=== PATIENT | female | born 1945 | race Caucasian/White ===

== ENCOUNTER 2025-04-28 09:29 | Emergency (ER) | payer OTHER, SELFPAY ==
--- OUTSIDE RECORDS SUMMARY | 2025-04-27 23:59 | XMS_ITS | Continuity of Care Document ---
Author Organization [facility] Address [address] [facility], [address] d Floor, [address] [place] [id number] Care Team Providers Care Tobacco Warehouse Agent Name Role Forensic EngineerManan Wood MD Primary Care Physician [phone] Encounter [facility] Date(s): 03/28/25 - 04/27/25 [facility] [address], [address] [place] [id number] Attending Physician: Deepa Grady Admitting Physician: AdmtrDeepa Referring Physician: Admtr ArKandi Encounter Type: Triage Allergies, Adverse Reactions, Alerts Substance Criticality Severity Reaction Reaction Severity Status morphine Unknown Active Immunizations Given and Recorded Vaccine Date Status Refusal Reason zoster vaccine, inactivated 12/04/23 Recorded zoster vaccine, inactivated 08/15/18 Recorded zoster vaccine, inactivated 06/16/18 Recorded influenza virus vaccine, inactivated 08/14/22 Give n influenza virus vaccine, inactivated 06/29/18 Angel rded influenza virus vaccine, inactivated 06/12/17 Give n influenza virus vaccine, inactivated 07/24/15 Give n influenza virus vaccine, inactivated 06/09/14 Give n influenza virus vaccine, inactivated 05/28/13 Give n SARS-CoV-2 mRNA ([id number]) vax 02/22/22 Given SARS-CoV-2 (COVID-19) mRNA BNT-162b2 vac 1 06/12/21 Given SARS-CoV-2 (COVID-19) mRNA BNT-162b2 vac 2 05/22/21 Given pneumococcal 13-valent vaccine 12/23/17 Given pneumococcal 13-valent vaccine 07/24/15 Given Zoster Vaccine Live 11/22/15 Recorded tetanus/diphtheria/pertussis, acel(Tdap) 09/09/13 Given pneumococcal 23-valent vaccine 06/11/13 Given Influenza Inactive (IM) (oldterm) 3 05/21/12 Given Influenza Inactive (IM) (oldterm) 4 07/12/11 Given tetanus-diphtheria toxoids (Td) 05/21/12 Given Influenza Vaccine (oldterm) 5 05/17/10 Given 1Result Comment: normal slaine diluent added lot number [id number] expires 11/29/2022 2Result Comment: diluent lot# [id number] exp 11/21 3Admin Note: vis 4Admin Note: vis 5Admin Note: VIS GIVEN [id number] Medications amlodipine-olmesartan 10 mg-20 mg oral tablet 1 tablet, By Mouth, Daily, # 90 tablet, 1 Refills, Maintenance, 10/01/24 9:05:00 AM EST, [facility]/pharmacy #[id number], 1 tablet By Mouth Daily, 164, cm, 05/25/24 9:05:00 EDT, Height, 66.4, kg, 11/29/23 21:17:00EDT, Dry Weight Start Date: 10/01/24 Status: Ordered Quantity: 90.0 Unit: tablet Repeat number: 2 atorvastatin 10 mg oral tablet 1 tablet, By Mouth, Daily, # 90 tablet, 1 Refills, Maintenance, 10/01/24 9:05:00 AM EST, [facility]/pharmacy #1130, 164, cm, 05/25/24 9:05:00 EDT, Height, 66.4, kg, 11/29/23 21:17:00 EDT, Dry Weight Start Date: 10/01/24 Status: Ordered Quantity: 90.0 Unit: tablet Repeat number: 2 Barrier cream Barrier cream, See Instructions, # 2 each, Refills 11, Tot. Refills 11, Maintenance, Dx: urinry incontinence, 03/26/24 8:43:00 AM EDT, Supply Start Date: 03/26/24 Status: Ordered Quantity: 2.0 Unit: each Repeat number: 12 Breast prosthesis bra Breast prosthesis bra, See Instructions, # 1 each, Refills 11, Tot. Refills 11, Maintenance, Diagnosis 1. Breast Cancer length of need: 12, 07/03/20 3:23:00 PM EST, Compound Start Date: 07/03/20 Status: Ordered Quantity: 1.0 Unit: each Repeat number: 12 Briefs - x-large Briefs - x-large, See Instructions, # 120 each, Refills 11, Tot. Refills 11, Maintenance, Dx: urinary incontinence, 01/27/24 2:14:00 PM EDT, Supply Start Date: 01/27/24 Status: Ordered Quantity: 120.0 Unit: each Repeat number: 12 Calcium Carbonate See Instructions, takes 750mg PRN By Mouth, 0 Refills, Maintenance, 03/09/25 12:49:00 AM EDT, Partialfill upon patient request if the prescription is for a schedule II opioid drug. Start Date: 03/09/25 Status: Ordered Repeat number: 1 cholecalciferol 1000 intl units oral capsule 1 capsule = 1,000 International_Units, By Mouth, Daily, # 90 capsule, 1 Refills, Maintenance, 10/01/24 9:05:00 AM EST, Capsule, [facility], 164, cm, 05/25/24 9:05:00 EDT, Height, 66.4, kg, 11/29/23 21:17:00 EDT, Dry Weight Start Date: 10/01/24 Status: Ordered Quantity: 90.0 Unit: capsule Repeat number: 2 Disposable pads Disposable pads, See Instructions, # 90 each, Refills 11, Tot. Refills 11, Maintenance, use TID as directed continence care Diagnosis 1. Cognitive impairment 2. incontinence Length of need: 12, 12/29/23 1:39:00 PM EDT, Supply Start Date: 12/29/23 Status: Ordered Quantity: 90.0 Unit: each Repeat number: 12 Ensure Ensure, See Instructions, # 60 each, Refills 11, Tot. Refills 11, Maintenance, Dx: K20.90, R11.10, R93.89 Height 164 cm, weight 58.5 kg CHRISTOPHER 12 months Please fax to [employer], 04/11/25 1:53:00 PMEDT, Supply Start Date: 04/11/25 Status: Ordered Quantity: 60.0 Unit: each Repeat number: 12 Face Masks Face Masks, See Instructions, # 20 each, Refills 0, Tot. Refills 0, Maintenance, wear daily whenever outside, 12/10/19 4:11:00 PM EDT, Supply, 164, cm, 10/21/19 11:12:00 EST, Height, 71.2, kg, 02/25/19 8:18:00 EDT, Dry Weight Start Date: 12/10/19 Status: Ordered Quantity: 20.0 Unit: each Repeat number: 1 Indications: Malignant neoplasm of unspecified part of unspecified bronchus or lung; ferrous sulfate 325 mg oral tablet 1 tablet, By Mouth, 2 times a day, # 180 tablet, 1 Refills, Maintenance, 10/01/24 9:05:00 AM EST, [facility]/pharmacy #1130, 164, cm, 05/25/24 9:05:00 EDT, Height, 66.4, kg, 11/29/23 21:17:00 EDT, Dry Weight Start Date: 10/01/24 Status: Ordered Quantity: 180.0 Unit: tablet Repeat number: 2 Fosamax 70 mg oral tablet 1 tablet = 70 mg, By Mouth, Every week, # 12 tablet, 1 Refills, Maintenance, 10/01/24 9:05:00 AM EST, Tablet, [facility]/pharmacy #1130, Partial fill upon patient request if the prescription is for a schedule II opioid drug., 164, cm, 05/25/24 9:05:00 EDT, Height, 66.4, kg, 11/29/23 21:17:00 EDT, Dry Weight Start Date: 10/01/24 Status: Ordered Quantity: 12.0 Unit: tablet Repeat number: 2 Gloves See Instructions, # 3 pack/packet, Refills 11, Tot. Refills 11, Maintenance, 2 boxes large gloves. Use for continence care Diagnosis 1. Fecal incontinence Length of need: 99, 10/01/24 9:21:00 AM EST, Compound Start Date: 10/01/24 Status: Ordered Quantity: 3.0 Unit: pack/packet Repeat number: 12 Home Blood Pressure Monitor See Instructions, # 1 each, Maintenance, Dx: HTN, 08/19/23 9:53:00 AM EST, Supply Start Date: 08/19/23 Status: Ordered Quantity: 1.0 Unit: each Repeat number: 1 Harris cream Harris cream, See Instructions, # 1 each, Refills 11, Tot. Refills 11, Maintenance, use BID as directed continence care Diagnosis 1. Cognitive impairment 2. incontinence Length of need: 12, 12/29/23 1:38:00 PM EDT, Supply Start Date: 12/29/23 Status: Ordered Quantity: 1.0 Unit: each Repeat number: 12 Incontinence bed pads Incontinence bed pads, See Instructions, # 60 each, Refills 11, Tot. Refills 11, Maintenance, use TID as directed continence care Diagnosis 1. Cognitive impairment 2. incontinence Length of need: 12,01/27/24 2:11:00 PM EDT, Supply Start Date: 01/27/24 Status: Ordered Quantity: 60.0 Unit: each Repeat number: 12 levETIRAcetam 500 mg oral tablet 3 tablet = 1,500 mg, By Mouth, 2 times a day, # 180 tablet, 11 Refills, Maintenance, 05/25/24 9:30:00 AM EDT, [facility]/pharmacy #1130, Partial fill upon patient request if the prescription is for a schedule II opioid drug., 164, cm, 05/25/24 9:05:00 EDT, Height, 66.4, kg, 11/29/23 21:17:00 EDT, Dry Weight Start Date: 05/25/24 Status: Ordered Quantity: 180.0 Unit: tablet Repeat number: 12 Liners Liners, See Instructions, # 180 each, Refills 11, Tot. Refills 11, Maintenance, use as directed continence care Diagnosis 1. Cognitive impairment 2. incontinence Length of need: , 07/03/20 3:23:00 PM EST Start Date: 07/03/20 Status: Ordered Quantity: 180.0 Unit: each Repeat number: 12 MiraLax oral powder for reconstitution = 17 Gm, By Mouth, Daily, PRN Constipation, # 527 Gm, 3 Refills, Maintenance, 02/25/23 8:18:00 AM EDT, [facility]/pharmacy #1130, 17 Gm By Mouth Daily,PRN:Constipation, 164, cm, 08/14/22 9:27:00 EST, Height,68.7, kg, 07/22/22 15:08:00 EST, Dry Weight Start Date: 02/25/23 Status: Ordered Quantity: 527.0 Unit: g Repeat number: 4 Indications: Constipation, unspecified; omeprazole 40 mg oral enteric coated capsule 1 capsule = 40 mg, By Mouth, Daily, # 90 capsule, 1 Refills, Maintenance, 04/08/25 11:32:00 AM EDT, EC Capsule, [facility], Partial fill upon patient request if the prescription is for a schedule II opioid drug., 164, cm, 04/08/25 11:09:00 EDT, Height, 61.3, kg, 03/09/25 2:15:00 EDT, Dry Weight Start Date: 04/08/25 Status: Ordered Quantity: 90.0 Unit: capsule Repeat number: 2 Orthopedic shoes Orthopedic shoes, See Instructions, # 2 each, Refills 11, Tot. Refills 11, Maintenance, use for safe walking Diagnosis 1. bunion M20.11 2. callous L84 length of need : 99, 04/17/21 9:38:00 AM EDT, Compound Start Date: 04/17/21 Status: Ordered Quantity: 2.0 Unit: each Repeat number: 12 Paper chucks Paper chucks, See Instructions, # 30 each, Refills 11, Tot. Refills 11, Maintenance, Dx: urinary incontinence, 01/27/24 2:13:00 PM EDT, Supply Start Date: 01/27/24 Status: Ordered Quantity: 30.0 Unit: each Repeat number: 12 Power recliner Power recliner, See Instructions, # 1 each, Refills 0, Tot. Refills 0, Maintenance, For safety at home Dx: M79.89 Height 164 cm, weight 58.5 kg CHRISTOPHER 99 Please fax to [employer], 04/11/25 1:53:00 PM EDT, Supply Start Date: 04/11/25 Status: Ordered Quantity: 1.0 Unit: each Repeat number: 1 Pull-ups - Size X-Large Pull-ups - Size X-Large, See Instructions, # 180 each, Refills 11, Tot. Refills 11, Maintenance, use for up to 6 changes daily Diagnosis 1. Dementia 2. Total Incontinence Length of need: 12, 12/29/23 1:38:00 PM EDT Start Date: 12/29/23 Status: Ordered Quantity: 180.0 Unit: each Repeat number: 12 Remedy Essentials Moisturizing Body Lotion Remedy Essentials Moisturizing Body Lotion, See Instructions, # 1 each, Refills 5, Tot. Refills 5, Maintenance, apply to body daily, please dispense 1 bottle, 12/29/23 1:42:00 PM EDT, Compound Start Date: 12/29/23 Status: Ordered Quantity: 1.0 Unit: each Repeat number: 6 sertraline 25 mg oral tablet 1 tablet, By Mouth, Daily, # 90 tablet, 1 Refills, Maintenance, 10/01/24 9:05:00 AM EST, [facility]/pharmacy #1130, 164, cm, 05/25/24 9:05:00 EDT, Height, 66.4, kg, 11/29/23 21:17:00 EDT, Dry Weight Start Date: 10/01/24 Status: Ordered Quantity: 90.0 Unit: tablet Repeat number: 2 Tylenol Caplet Extra Strength 500 mg oral tablet 2 tablet = 1,000 mg, By Mouth, Every 6 hours, PRN as needed for pain, # 100 tablet, 0 Refills, Maintenance, pain, 12/20/14 2:54:57 PM EDT, [facility]/pharmacy #1130 Start Date: 12/20/14 Status: Ordered Quantity: 100.0 Unit: tablet Repeat number: 1 Vitamin B6 100 mg oral tablet 1 tablet = 100 mg, By Mouth, Daily, for 30 days, # 30 tablet, 11 Refills, Acute 05/20/25 9:29:00 AM EDT, 05/25/24 9:29:00 AM EDT, Tablet, [facility]/pharmacy #1130, Partial fill upon patient request if the prescription is for a schedule II opioid drug., 164, cm, 05/25/24 9:05:00 EDT, Height, 66.4, kg, 11/29/23 21:17:00 EDT, Dry Weight Start Date: 05/25/24 Stop Date: 05/20/25 Status: Ordered Quantity: 30.0 Unit: tablet Repeat number: 12 VITAMIN D3 1,000 UNIT SOFTGEL VITAMIN D3 1,000 UNIT SOFTGEL, 1, capsule, By Mouth, Daily, # 90 capsule, 1 Refills, Maintenance, 01/19/24 12:28:00 PM EDT, 164, cm, 12/04/23 17:54:00 EDT, Height, 66.4, kg, 11/29/23 21:17:00 EDT, DryWeight Start Date: 01/19/24 Status: Ordered Quantity: 90.0 Unit: capsule Repeat number: 1 Washable pads for bed Washable pads for bed, See Instructions, # 14 each, Refills 11, Tot. Refills 11, Maintenance, use BID as directed continence care Diagnosis 1. Cognitive impairment 2. incontinence Length of need: 12,03/26/24 8:44:00 AM EDT, Supply Start Date: 03/26/24 Status: Ordered Quantity: 14.0 Unit: each Repeat number: 12 Wipes Wipes, See Instructions, # 4 pack/packet, Refills 11, Tot. Refills 11, Maintenance, 3 packs per month, use 8 X/day as directed continence care Diagnosis 1. Cognitive impairment 2. incontinence Lengthof need: 12, 03/26/24 8:37:00 AM EDT, Supply Start Date: 03/26/24 Status: Ordered Quantity: 4.0 Unit: pack/packet Repeat number: 12 Problem List Condition Confirmation Course Effective Dates Status H ealth Status Informant CVA - Cerebrovascular accident 1 Confirmed Active Esophagitis determined by endoscopy Confirmed 08/18/17 Active History of adenocarcinoma of lung Confirmed Active History of breast cancer Confirmed 02/13/10 Active Hypertension Confirmed Active Cognitive impairment Confirmed Active Multiple thyroid nodules Confirmed Active Osteoporosis Confirmed Active [id number] [employer] [facility] Confirmed Active Urine incontinence Confirmed Active 1Age unknown Social History Social History Type Response Smoking Status Former smoker; Tobac co user in household: No; Other: 1 pack a day, for 10 years. quit20 years ago; Tobacco use times per day: 1 pack/day. for 10 years. quit 20 years ago; entered on: 04/09/18 Sex Sex Representation Female (finding) Patient Care team information Care Team Personnel Name: Manan Wood MD Position: [facility] Physician - Primary Care Member Role: PCP Address: [address] [place] [id number] Telecom: Name: Cynthia West RN Position: [facility] RN Member Role: Primary Care Nurse Care Team Related Persons Name: MELI TOUSSAINT Name: REGAN BERRIOS Name: ROBYN SINGLETARY Insurance Providers Guarantor name: TONG KELLY [employer] Plan Information #: 1 Payer: [employer] Payer Identifier: NA Member Number: [id number] Group Number: [id number] Subscriber Identifier: [id number] Relationship to Subscriber: self Coverage Type: Medicare Managed Care (Includes Medicare Advantage Plans) Coverage Verification Date: NA Telecom: [employer] Address: NA
--- NOTE | ~2025-04-28 | XR_ITS ---
EXAMINATION: XR CHEST CLINICAL INFORMATION: cough COMPARISON: None available. TECHNIQUE: 2 views of the chest were obtained. FINDINGS: Indistinct margins in the perihilar regions. Haziness in both hemithoraces more pronounced on the left side. Blunting of the posterior costophrenic angles, left greater than the right. Indistinct margins of the cardiomediastinal silhouette. Ill-defined opacity in the upper right hemithorax. Heart silhouette is not enlarged. No pneumothorax. Calcified plaque thoracic aorta. Multilevel thoracic and lower cervical spondylosis. Osteopenia versus osteoporosis. XR/XR chest 2V IMPRESSION: Pulmonary edema and moderate to large left-sided pleural effusion. Ill-defined opacity, upper right hemithorax. Underlying neoplasm cannot be excluded. Electronically signed by: Julio Cesar Carrasco MD 04/28/2025 02:37 PM EDT
[2025-04-28 09:36] VITALS: BP 130/75; PULSE 67; O2SAT 94
[2025-04-28 09:40] VITALS: BMI 29.3
[2025-04-28 09:51] VITALS: BP 123/60; PULSE 71; RESP 16; TEMP 36.6; O2SAT 96
--- NOTE | 2025-04-28 10:21 | PC.NURSE ---
Patient sleeping at this time. Respirations even/unlabored. Awaiting ED provider. Care ongoing by this RN.
--- NOTE | 2025-04-28 12:22 | PC.NURSE ---
Patient continues to sleep. Respirations even & unlabored. Care ongoing by this RN.
[2025-04-28 12:34] VITALS: BP 130/62; PULSE 91; RESP 15; TEMP 37.7; O2SAT 96
--- NOTE | 2025-04-28 13:25 | PC.NURSE ---
Patient eating a sandwich without difficulty at this time. Attempted to have the patient write her name, to which she wrote Sand then kept scribbling it out, stated Jasmyn then smiling. When asked about date, stating 30 . Dee Holt RN spoke with Anne-Marie Marks (engineering manager of nearby [facility], [place], [place]). Denies knowing of any residents that fit the description of this patient. Pleasant, cooperative, calm, but confused.
--- NOTE | 2025-04-28 13:43 | ECG_ITS ---
Test Reason : SCREENING Blood Pressure : */* mmHG Vent. Rate : 77 BPM Atrial Rate : 77 BPM P-R Int : 124 ms QRS Dur : 78 ms QT Int : 412 ms P-R-T Axes : 76 45 59 degrees QTcB Int : 466 ms Normal sinus rhythm Normal ECG No previous ECGs available Referred By: Jana Harding Electronically Signed By: FELICIA DAILY
[2025-04-28 14:59] LABS: MANUAL DIFF FLAG NO
--- NOTE | 2025-04-28 15:02 | ED.GENADULT ---
HPI - General Adult General Chief complaint: Altered Mental Status Stated complaint: dementia, disoriented Time Seen by Provider: 04/28/25 10:43 History of Present Illness ED Provider: Dr. Harding HPI narrative: Unknown age female patient presents via EMS found being [email or web address]. The patient is confused and can only provide her name Grisel Sanabria . Patient denies any complaints. Unable to obtain further information. Related Data Allergies Allergy/AdvReac Type Severity Reaction Status Date / Time morphine Allergy Unknown Verified 04/28/25 16:37 Review of Systems Review of Systems: Yes all other systems are reviewed and are negative [facility] Social History Social History Advance Directives: No Advance Directives Information Provided: No Physical Exam ED Vital Signs: Vital Signs - 24 hr 04/28/25 09:51 04/28/25 12:34 04/28/25 15:17 Temperature 97.9 F 99.9 F Pulse Rate 71 91 78 Respiratory Rate 16 15 18 Blood Pressure 123/60 130/62 126/60 Pulse Oximetry 96 96 100 Oxygen Delivery Method Room Air Room Air Room Air BMI result Body Mass Index 29.3 Patient is afebrile, hemodynamically stable. Const General: cooperative and no acute distress HENMT Head: Yes normal to inspection and Yes atraumatic Eyes General: appearance normal, both eyes and all related structures Pupils: Equal, round and reactive pupils present EOM: EOMs intact bilaterally Neck Neck: Yes normal visual inspection, Yes full ROM, Yes supple and No tender Chest Chest palpation & inspection: normal inspection of the chest and normal palpation of entire chest wall Resp Other: + nonproductive cough Effort & Inspection: normal respiratory effort, able to speak in complete sentences and Actively coughing Auscultation: clear to auscultation bilaterally Cardio Rate: regular rate Rhythm: regular rhythm Peripheral pulses: Peripheral pulses 2+ throughout GI Inspection: Yes normal to inspection, No Abdominal wall edema and No distended Palpation (GI): Soft to palpation, not firm, nontender, no guarding and not rigid Auscultation: normal bowel sounds Back/Spine/Pelvis Back: No back tenderness Neuro Other: AOx1 Moves all extremities without difficulty Cranial nerves: Yes Equal, round and reactive pupils present Course Course Course Narrative: Patient is afebrile and hemodynamically stable. We unfortunately do not have any information on this very pleasant lady. We do not know her age or medical problems. Ordered for screening labs and EKG. Ordered for CXR given cough. Police contacted and silver alert placed. EKG independently interpreted by myself as NSR 77BPM with normal intervals. Labs reviewed. Mild anemia, unknown baseline. No significant leukocytosis. CXR notable for pulmonary edema and moderate to large pleural effusion with ill-defined opacity in the upper right hemithorax underlying neoplasm cannot be excluded. COVID negative. Medical Decision Making Medical Decision Making MDM Narrative: Received the patient from Dr. Harding. Patient guardian Izabel is present currently. She stated that patient was being dropped off for a daycare program however patient never made it inside. Therefore this may have caused the patient to get loss. She stated that patient was recently admitted to [facility] for pneumonia. She is currently taking antibiotics for this. I discussed the chest x-ray finding of pulmonary edema with pleural effusion. They do have appointment with manager [employer] on 05/10/2025. Patient does not appear to be tachypneic or hypoxic on m exam. Patient appears to be stable. We will plan to discharge patient home at this time she does have a safe discharge plan. Lab Data 04/28/25 14:54 04/28/25 14:54 Labs: Lab Results 04/28/25 Range/Units 14:54 WBC 6.1 (4.8-10.8) X10*3/uL RBC 3.29 L (4.20-5.50) X10*6/uL Hgb 9.6 L (12.0-16.0) g/dl Hct 29.6 L (37.0-47.0) % MCV 90.0 (80.0-98.0) fL MCH 29.2 (27.0-33.0) pg MCHC 32.4 (31.0-35.0) g/dl RDW 13.0 (11.0-16.0) % Plt Count 205 (160-400) X10*3/uL MPV 10.9 (9.4-12.3) fL Immature Gran % (Auto) 0.3 (0.0-0.4) % Neut % (Auto) 64.0 (45-73) % Lymph % (Auto) 25.8 (20-40) % [place] % (Auto) 7.5 (2-11) % Eos % (Auto) 1.6 (0-4) % Baso % (Auto) 0.8 (0-2) % Lymph # (Auto) 1.6 (1.2-4.9) X10*3/uL [place] # (Auto) 0.5 (0.1-1.2) X10*3/uL Eos # (Auto) 0.1 (0.0-0.4) X10*3/uL Baso # (Auto) 0.1 (0.0-0.2) X10*3/uL Abs Immat Gran (auto) 0.02 (0.00-0.03) X10*3/uL Absolute Neuts (auto) 3.9 (2.0-8.3) x10*3/uL Absolute Nucleated RBC 0.000 (0.0-0.012) X10*3/uL Nucleated RBC % (auto) 0.0 (0.0-0.2) /100WBC Sodium 141 (135-145) mmol/L Potassium 4.2 (3.3-5.1) mmol/L Chloride 107 (96-108) mmol/L Carbon Dioxide 26 (22-29) mmol/L Anion Gap 12 (12-20) BUN 9 (9-16) mg/dL Creatinine 0.75 (0.5-1.4) mg/dL Estim Creat Clear Calc 47.2 Estimated GFR > 60 Random Glucose 112 (60-115) mg/dL Calcium 8.8 (8.4-10.2) mg/dL COVID-19 (TAMARA) Negative (Negative) COVID-19 Clin Com See Note Radiology Impression Discussion of test interpretation with radiology: I have reviewed the radiologist's reading. Radiologist Impression: EXAMINATION: XR CHEST CLINICAL INFORMATION: cough COMPARISON: None available. TECHNIQUE: 2 views of the chest were obtained. FINDINGS: Indistinct margins in the perihilar regions. Haziness in both hemithoraces more pronounced on the left side. Blunting of the posterior costophrenic angles, left greater than the right. Indistinct margins of the cardiomediastinal silhouette. Ill-defined opacity in the upper right hemithorax. Heart silhouette is not enlarged. No pneumothorax. Calcified plaque thoracic aorta. Multilevel thoracic and lower cervical spondylosis. Osteopenia versus osteoporosis. XR/XR chest 2V IMPRESSION: Pulmonary edema and moderate to large left-sided pleural effusion. Ill-defined opacity, upper right hemithorax. Underlying neoplasm cannot be excluded. Electronically signed by: Julio Cesar Carrasco MD 04/28/2025 02:37 PM EDT RP Discharge Plan Discharge Clinical Impression: Dementia, Pleural effusion, Pulmonary edema Patient Disposition: Still a Patient Instructions: Dementia (ED) Additional Instructions: Chest x ray show signs of pulmonary edema and a left pleural effusion these are fluid in the lungs finding. Continue and finish her antibiotic. Please follow up with her appointment with the manager [employer]. If she does appear to be short of breath please return to the ER. Print Language: Belarusian
[2025-04-28 15:04] LABS: Hematocrit 29.6 % (37.0-47.0); Hemoglobin 9.6 g/dl (12.0-16.0); Imm Gran Abs Auto 0.02 X10*3/uL (0.00-0.03); Imm Gran Pct Auto 0.3 % (0.0-0.4); Lymphocytes Absolute Auto 1.6 X10*3/uL (1.2-4.9); Mean Corpuscular HGB Conc 32.4 g/dl (31.0-35.0); Mean Corpuscular Hemoglobin 29.2 pg (27.0-33.0); Mean Corpuscular Volume 90.0 fL (80.0-98.0); NRBC Abs Auto 0.000 X10*3/uL (0.0-0.012); NRBC Pct Auto 0.0 /100WBC (0.0-0.2); Platelet Count 205 X10*3/uL (160-400); Red Blood Count 3.29 X10*6/uL (4.20-5.50); White Blood Count 6.1 X10*3/uL (4.8-10.8)
[2025-04-28 15:17] VITALS: BP 126/60; PULSE 78; RESP 18; O2SAT 100
[2025-04-28 15:17] LABS: COVID-19 Test Negative (Negative); IDNOW Serial# 55D5AD1C
[2025-04-28 15:36] LABS: Anion Gap 12 (12-20); Blood Urea Nitrogen 9 mg/dL (9-16); Calcium 8.8 mg/dL (8.4-10.2); Carbon Dioxide 26 mmol/L (22-29); Chloride 107 mmol/L (96-108); Creatinine Clr Calc Pharmacy 47.2; Estimated Glomerular Filt Rate > 60; Potassium 4.2 mmol/L (3.3-5.1); Sodium 141 mmol/L (135-145)
--- OUTSIDE RECORDS SUMMARY | 2025-04-28 16:27 | XMS_ITS | Clinical Summary ---
Author Organization [facility] Address [address] [place] [address] Phone Care Team Providers Care Wedding Designer Name Role Hvac Sales EngineerManan Wood MD Primary Care Provider [phone] Allergies Active Allergy Reactions Criticality Noted Date Comments Morphine Unknown 11/13/2022 Medications amLODIPine-olme sartan (ZACHARY) 10-20 mg per tablet Take 1 tablet by mouth 1 (one) time each day. Active levETIRAcetam (KEPPRA) 500 mg tablet Take 3 tablets (1,500 mg total) by mouth 2 (two) times a day. Active pantoprazole (PROTONIX) 40 mg EC tablet Take 1 tablet (40 mg total) by mouth 2 (two) times a day. Do not crush, chew, or split. 60 each 1 5 06/21/20 25 Active omeprazole (PriLOSEC) [address] capsule Take 1 capsule (40 mg total) by mouth 1 (one) time each day. 8 04/22/20 25 Discontinue d(Stop Taking at Discharge) amoxicillin-cla vulanate (AUGMENTIN) 400-57 mg/5 mL suspension Take 10.9 mL (875 mg total) by mouth every 12 (twelve) hours for 5 days. 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 Encounters Date Type Department Care Team Description 04/21/2025 2:55 PM EDT Anesthesia Event [facility] End[facility] [address] [place] [address] Karon Singh MD Korobkov, Vitaliy, DO 04/19/2025 3:58 PM EDT - 04/22/2025 3:19 PM EDT Hospital Encounter [facility] [address] [place] [address] Dora Fuentes MD Jones, Christopher, MD Kokosadze, Estate, MD Pleural effusion (Primary Dx); Choledochocele; Esophagitis; Aspiration pneumonia, unspecified aspiration pneumonia type, unspecified laterality, unspecified part of lung ([facility], [facility]) Discharge Disposition: Home-Health Care Svc from Last 3 Months Medical History Medical History Date Comments Aneurysm ([facility]) CVA (cerebral vascular accident) ([facility], [facility] Mental deficiency Seizure disorder ([facility], [facility] V28) Breast cancer ([facility], [facility] V28) Hypertension Cognitive developmental delay Adenocarcinoma of lung ([facility], [facility] V[facility] ) Family History Medical History Relation Name Comments Esophageal cancer Brother Cancer Father Cancer Mother Cancer Sister Relation Name Status Comments Brother Father Mother Sister Social History Tobacco Use Types Packs/Day Years Used Date Smoking Tobacco: Former Cigarettes Smokeless Tobacco: Former Alcohol Use Standard Drinks/Week Comments Not Currently 0 (1 standard drink = 0.6 oz pur e alcohol) Interpersonal Safety Answer Date Record ed Physical Abuse 04/21/2025 Verbal Abuse 04/21/2025 Comments No Sex and Gender Information Value Date Recorded Sex Assigned at Not on file Legal Sex Female 8:48 PM EST Gender Identity Not on file Sexual Orientation Not on file Obstetrics History Last Filed Vital Signs Vital Sign Reading Time Taken Comments Blood Pressure 122/63 04/22/2025 8:00 AM EDT Pulse 73 04/22/2025 8:00 AM EDT Temperature 36.9 C (98.4 F) 04/22/2025 8:00 AM EDT Respiratory Rate 18 04/22/2025 8:00 AM EDT Oxygen Saturation 94% 04/22/2025 8:00 AM EDT Inhaled Oxygen Concentration - - Weight 59 kg (130 lb) 04/21/2025 1:56 PM EDT Height 167.6 cm (5' 6 ) 04/21/2025 1:56 PM EDT Body Mass Index 20.98 04/21/2025 1:56 PM EDT Plan of Treatment Upcoming Encounters Date Type Department Care Team (Late st Contact Info) Description 05/09/2025 8:45 AM EDT Office Visit Bariatric Surgery - [place] [address] [facility] [address] [place] [phone] Stephanie Euceda MD [address] [place] [address] 05/10/2025 8:30 AM EDT Consult Pulmonology - [place] [address] [facility] [address] [place] [phone] Fina Rodriguez MD [address] [place] [address] Health Maintenance Due Date Last Done Comments Cholesterol Screening (Lipid Panel) 08/03/2022 Hepatitis C Screening 08/03/2022 Medicare Annual Wellness Visit 08/03/2022 Osteoporosis Screening (Bone Density Screening) 08/03/2022 Social Influencers of Health Screening 08/03/2022 RSV Immunization Adult Patients (1 - 1-dose 75+ series) 2022 DTaP,Tdap,and Td Vaccines (3 - Td or Tdap) 09/09/2023 09/09/2013, 05/21/2012 COVID-19 Vaccine ( season) 2024 02/22/2022, 06/12/2021, 05/22/2021 Depression Screening 09/01/2024 Influenza Vaccine (#1) 2025 , 06/29/2018, 06/12/2017, Additional history exists Falls Risk Assessment 04/22/2026 04/22/2025 Hypertension/CHF/CAD Annual BMP Blood Test 04/22/2026 04/22/2025, 04/21/2025, 04/20/2025, Additional history exists Pneumococcal Vaccine: 50+ Years Completed 12/23/2017, 07/24/2015, 06/11/2013 Zoster Vaccines Completed 12/04/2023, 08/01, 06/16/2018, Additional history exists HIB Vaccines Aged Out No longer eligi ble based on patient's age to complete this topic HPV Vaccines Aged Out No longer eligi ble based on patient's age to complete this topic Hepatitis A Vaccines Aged Out No long er eligible based on patient's age to complete this topic Hepatitis B Vaccines Aged Out No long er eligible based on patient's age to complete this topic IPV Vaccines Aged Out No longer eligi ble based on patient's age to complete this topic MMR Vaccines Aged Out No longer eligi ble based on patient's age to complete this topic Meningococcal ACWY Vaccine Aged Out N o longer eligible based on patient's age to complete this topic Meningococcal B Vaccine Aged Out No l onger eligible based on patient's age to complete this topic RSV Immunization Patients Under 20 months Aged Out No longer eligible based on patient's age to complete this topic Varicella Vaccines Aged Out No longer eligible based on patient's age to complete this topic Procedures Procedure Name Priority Date/Time Associated Diagnosis Comments POCT GLUCOSE BLOOD Routine 04/22/2025 8: 49 AM EDT CBC WITH AUTO DIFFERENTIAL Routine 04/22/2025 7:21 AM EDT HEPATIC FUNCTION PANEL Routine 7:21 AM EDT MAGNESIUM Routine 04/22/2025 7:21 AM EDT CBC AND DIFFERENTIAL Routine 04/22/2025 7:21 AM EDT BASIC METABOLIC PANEL Routine 04/22/2025 7:21 AM EDT POCT GLUCOSE BLOOD Routine 04/22/2025 3: 01 AM EDT POCT GLUCOSE BLOOD Routine 04/21/2025 8: 13 PM EDT POCT GLUCOSE BLOOD Routine 04/21/2025 4: 45 PM EDT ERCP Routine 04/21/2025 3:36 PM EDT Choledochocele XR ERCP W STONE REMOVAL Routine 04/21/2025 3:34 PM EDT NON-GYNECOLOGIC CYTOLOGY Routine 04/21/2025 3:28 PM EDT Pleural effusion Choledochocele TH AN ENDOTRACHEAL(NO CHARGE) Routine 04/21/2025 3:11 PM EDT TRANSTHORACIC ECHOCARDIOGRAM (TTE) COMPLETE Routine 04/21/2025 12:18 PM EDT Pleural effusion POCT GLUCOSE BLOOD Routine 04/21/2025 10 :57 AM EDT POCT GLUCOSE BLOOD Routine 04/21/2025 8: 50 AM EDT POCT GLUCOSE BLOOD Routine 04/21/2025 8: 32 AM EDT POCT GLUCOSE BLOOD Routine 04/21/2025 8: 02 AM EDT POCT GLUCOSE BLOOD Routine 04/21/2025 7: 43 AM EDT CBC WITH AUTO DIFFERENTIAL Routine 04/21/2025 5:50 AM EDT HEPATIC FUNCTION PANEL Routine 5:50 AM EDT CBC AND DIFFERENTIAL Routine 04/21/2025 5:50 AM EDT BASIC METABOLIC PANEL Routine 04/21/2025 5:50 AM EDT MR ABDOMEN WO CONTRAST MRCP STAT 04/20/2025 4:01 PM EDT CBC WITH AUTO DIFFERENTIAL Routine 04/20/2025 7:30 AM EDT CBC AND DIFFERENTIAL Routine 04/20/2025 7:30 AM EDT SST - GOLD Routine 04/20/2025 6:49 AM EDT EXTRA TUBES Routine 04/20/2025 6:49 AM EDT BASIC METABOLIC PANEL Routine 04/20/2025 6:49 AM EDT TYPE AND SCREEN Routine 04/20/2025 2:19 AM EDT HEMOGLOBIN AND HEMATOCRIT Routine 04/20/2025 2:19 AM EDT HEMOGLOBIN AND HEMATOCRIT Routine 04/19/2025 11:44 PM EDT US ABDOMEN LIMITED STAT 04/19/2025 7: 52 PM EDT KEN URINE CULTURE TUBE STAT 04/19/2025 7:17 PM EDT URINALYSIS WITH REFLEX MICROSCOPIC AND CULTURE STAT 04/19/2025 7:17 PM EDT URINALYSIS WITH REFLEX MICROSCOPIC AND CULTURE STAT 04/19/2025 7:[address] CHEST/ABDOMEN/PELVIS W CONTRAST STAT 04/19/2025 5:48 PM EDT PROLACTIN STAT Add-on 04/19/2025 4:16 PM EDT CBC WITH AUTO DIFFERENTIAL STAT 04/19/2025 4:16 PM EDT LIPASE STAT 04/19/2025 4:16 PM EDT HEPATIC FUNCTION PANEL STAT 4:16 PM EDT BASIC METABOLIC PANEL STAT 04/19/2025 4:16 PM EDT CBC AND DIFFERENTIAL STAT 04/19/2025 4:16 PM EDT from Last 3 Months Results * (ABNORMAL) POCT Glucose, blood (04/22/2025 8:49 AM EDT) Only the most recent of9 resultswithin the time period is included. [facility] Glucose POCT 110(H) 70 - 100 mg/dL 04/22/2025 8:50 AM T [facility] Blood Capillary blood specimen / Unknown 04/22/2025 8:49 AM EDT 04/22/2025 8:51 AM EDT [facility] POINT OF CARE TE ST DOCKED DEVICE UNSOLICITED RESULTS Final Result [facility] [address] [place] [address], * (ABNORMAL) CBC auto differential (04/22/2025 7:21 AM EDT) Only the most recent of4 resultswithin the time period is included. [facility] WBC 7.4 4.8 - 10.8 K/mcL LAB HEMETOLOGY METHOD 04/22/2025 7:39 AM [facility] RBC 2.90(L) 3.80 - 4.80 M/mcL LAB HEMETOLOGY METHOD 04/22/2025 7:39 AM [facility] Hemoglobin 8.3(L) 11.5 - 16.0 g/dL LAB HEMETOLOGY METHOD 04/22/2025 7:39 AM [facility] Hematocrit 25.7(L) 35.0 - 47.0 % LAB HEMETOLOGY METHOD 04/22/2025 7:39 AM [facility] MCV 89.2 79.0 - 98.0 FL LAB HEMETOLOGY METHOD 04/22/2025 7:39 AM [facility] MCH 28.8 27.0 - 32.0 pcg LAB HEMETOLOGY METHOD 04/22/2025 7:39 AM [facility] MCHC 32.3 32.0 - 37.0 g/dL LAB HEMETOLOGY METHOD 04/22/2025 7:39 AM [facility] RDW 12.4 11.0 - 15.0 % LAB HEMETOLOGY METHOD 04/22/2025 7:39 AM [facility] Platelets 306 130 - 400 K/mcL LAB HEMETOLOGY METHOD 04/22/2025 7:39 AM [facility] MPV 10.4 7.0 - 11.0 FL LAB HEMETOLOGY METHOD 04/22/2025 7:39 AM [facility] NRBC 0.0 <1.0 % LAB HEMETOLOGY METHOD 04/22/2025 7:39 AM [facility] NRBC Absolute 0.00 <0.10 K/mcL LAB HEMETOLOGY METHOD 04/22/2025 7:39 AM [facility] Neutrophils Relative 76.5 % LAB HEMETOLOGY METHOD 04/22/2025 7:39 AM [facility] Lymphocytes Relative 16.8 % LAB HEMETOLOGY METHOD 04/22/2025 7:39 AM [facility] Monocytes Relative 6.3 % LAB HEMETOLOGY METHOD 04/22/2025 7:39 AM [facility] Eosinophils Relative 0.0 % LAB HEMETOLOGY METHOD 04/22/2025 7:39 AM [facility] Basophils Relative 0.1 % LAB HEMETOLOGY METHOD 04/22/2025 7:39 AM [facility] Immature Granulocytes Relative 0.3 % LAB HEMETOLOGY METHOD 04/22/2025 7:39 AM [facility] Neutrophils Absolute 5.63 1.50 - 7.00 K/mcL LAB HEMETOLOGY METHOD 04/22/2025 7:39 AM [facility] Lymphocytes Absolute 1.24 1.00 - 5.00 K/mcL LAB HEMETOLOGY METHOD 04/22/2025 7:39 AM EDT [facility] Monocytes Absolute 0.46 0.20 - 1.00 K/[facility] HEMETOLOGY METHOD 04/22/2025 7:39 AM EDT [facility] Eosinophils Absolute 0.00 0.00 - 0.50 K/[facility] LAB HEMETOLOGY METHOD 04/22/2025 7:39 AM EDT [facility] Basophils Absolute 0.01 0.00 - 0.20 K/[facility] LAB HEMETOLOGY METHOD 04/22/2025 7:39 AM EDT [facility] Immature Granulocytes Absolute 0.02 0.00 - 0.03 K/[facility] LAB HEMETOLOGY METHOD 04/22/2025 7:39 AM EDT [facility] Blood Venous blood specimen / Unknown Venipuncture / Unknown 04/22/2025 7:21 AM EDT 04/22/2025 7:28 AM EDT us Ronak Rutherford MD LAB BLOOD ORDERABLES Final R esult Performing Organization Address City/[facility]/ZIP Co de Phone Number [facility] [address] [place] [address], * Magnesium (04/22/2025 7:21 AM EDT) Magnesium 1.9 1.9 - 2.6 mg/dL LAB CHEMISTRY METHOD 04/22/2025 8:15 AM EDT [facility] Blood Venous blood specimen / Unknown Venipuncture / Unknown 04/22/2025 7:21 AM EDT 04/22/2025 7:28 AM EDT us Ronak Rutherford MD LAB BLOOD ORDERABLES Final R esult [facility] [address] [place] [address], * (ABNORMAL) Hepatic function panel (04/22/2025 7:21 AM EDT) Only the most recent of3 resultswithin the time period is included. Total Protein 5.5(L) 6.0 - 8.0 g/dL LAB CHEMISTRY METHOD 04/22/2025 8:42 AM EDT [facility] Albumin 2.4(L) 3.2 - 5.0 g/dL LAB CHEMISTRY METHOD 04/22/2025 8:42 AM [facility] Total Bilirubin 0.2 0.0 - 1.4 mg/dL LAB CHEMISTRY METHOD 04/22/2025 8:42 AM [facility] Bilirubin, Direct <0.1 0.0 - 0.3 mg/dL LAB CHEMISTRY METHOD 04/22/2025 8:42 AM [facility] Bilirubin, Indirect LAB CHEMISTRY METHOD 04/22/2025 8:42 AM [facility] Comment:Unable to calculate Indirect Bilirubin. ALT (SGPT) 58 10 - 60 unit/L LAB CHEMISTRY METHOD 04/22/2025 8:42 AM [facility] Comment:Results verified by repeat testing AST (SGOT) 72(H) 10 - 42 unit/L LAB CHEMISTRY METHOD 04/22/2025 8:42 AM [facility] Comment:Results verified by repeat testing Alkaline Phosphatase 127(H) 42 - 121 unit/L LAB CHEMISTRY METHOD 04/22/2025 8:42 AM [facility] Comment:Results verified by repeat testing Blood Venous blood specimen / Unknown Venipuncture / Unknown 04/22/2025 7:21 AM EDT 04/22/2025 7:28 AM EDT us Estate Krish [facility] LAB BLOOD ORDERABLES Final R esult [facility] [address] [place] [address], [place] [phone] * (ABNORMAL) Basic metabolic panel (04/22/2025 7:21 AM EDT) Only the most recent of4 resultswithin the time period is included. Sodium 138 133 - 145 mmol/L LAB CHEMISTRY METHOD 04/22/2025 8:15 AM EDT [facility] Potassium 3.8 3.5 - 5.5 mmol/L LAB CHEMISTRY METHOD 04/22/2025 8:15 AM [facility] Chloride 106 96 - 110 mmol/L LAB CHEMISTRY METHOD 04/22/2025 8:15 AM [facility] CO2 27 21 - 32 mmol/L LAB CHEMISTRY METHOD 04/22/2025 8:15 AM T [facility] Anion Gap 5 3 - 11 LAB CHEMISTRY METHOD 04/22/2025 8:15 AM [facility] Glucose 132(H) 70 - 100 mg/dL LAB CHEMISTRY METHOD 04/22/2025 8:15 AM [facility] BUN 10 5 - 25 mg/dL LAB CHEMISTRY METHOD 04/22/2025 8:15 AM [facility] Creatinine 0.90 0.50 - 1.10 mg/dL LAB CHEMISTRY METHOD 04/22/2025 8:[facility] e[facility] 66 >=60 mL/min/1. 73m2 LAB CHEMISTRY METHOD 04/22/2025 8:15 AM [facility] Comment:Calculation based on the Chronic Kidney Disease Epidemiology Collaboration (CKD-EPI) equation refit without adjustment for race. BUN/Creatinine Ratio 11.1 LAB CHEMISTRY METHOD 04/22/2025 8:15 AM [facility] Calcium 8.2(L) 8.5 - 10.5 mg/dL LAB CHEMISTRY METHOD 04/22/2025 8:15 AM EDT [facility] Blood Venous blood specimen / Unknown Venipuncture / Unknown 04/22/2025 7:21 AM EDT 04/22/2025 7:28 AM EDT Kilolizzie Krish [facility] BLOOD ORDERABLES Final R esult [facility] [address] [place] [address], * ERCP Anesthesia - General; JMENF ENDOSCOPY (04/21/2025 3:36 PM EDT) Anatomical Region Laterality Modality Endoscopy 04/21/2025 2:54 PM EDT Impressions 04/21/2025 3:42 PM EDT - LA Grade D erosive esophagitis with no bleeding. - The major papilla appeared normal. - A single mild biliary stricture was found in the middle third of the main bile duct. The stricture was indeterminate. - A biliary sphincterotomy was performed. - Common bile duct was successfully dilated. - The biliary tree was swept and nothing was found. - Cells for cytology obtained in the middle third of the main bile duct. Recommendation: - Use a proton pump inhibitor IV BID. - Await cytology results. Narrative 04/21/2025 3:42 PM EDT [facility] Patient Name: Grisel Lawrence Procedure Date: 04/21/2025 2:54 PM Date of : 1945 Age: 79 Room: ROOM 18 Gender: Female Note Status: Finalized Attending MD: Len Beverly MD, Procedure Date No Time: 04/21/2025 Procedure: ERCP Indications: Abdominal pain of suspected biliary origin, Biliary dilation on Computed Tomogram Scan, Abnormal MRCP Providers: Len Beverly MD Referring MD: Len Beverly MD Medicines: General Anesthesia Complications: No immediate complications. Estimated Blood Loss: Estimated blood loss: none. Procedure: Pre-Anesthesia Assessment: - ASA Grade Assessment: III - A patient with severe systemic disease. After obtaining informed consent, the scope was passed under direct vision. Throughout the procedure, the patient's blood pressure, pulse, and oxygen saturations were monitored continuously. The Duodenoscope was introduced through the mouth, and advanced to the duodenum and used to inject contrast into the bile duct. The ERCP was accomplished without difficulty. The patient tolerated the procedure well. Findings: The gang ripsaw operator film was normal. A standard esophagogastroduodenoscopy scope was used for the examination of the upper gastrointestinal tract. The scope was passed under direct vision through the upper GI tract. LA Grade D (one or more mucosal breaks involving at least 75% of esophageal circumference) esophagitis with no bleeding was found in the middle third of the esophagus. The major papilla was normal. The bile duct was deeply cannulated with the Jagtome sphincterotome. Contrast was injected. I personally interpreted the bile duct images. There was brisk flow of contrast through the ducts. Image quality was excellent. Contrast extended to the bifurcation. The middle third of the main bile duct, upper third of the main bile duct and common hepatic duct were severely dilated and segmentally dilated, uncertain etiology (possibly a choledochocele). The largest diameter was 17 mm. A 12 mm biliary sphincterotomy was made with a Jagtome sphincterotome. There was no post-sphincterotomy bleeding. Dilation of the common bile duct with a 10-11-12 mm balloon (to a maximum balloon size of 12 mm) dilator was successful. To discover objects, the biliary tree was swept with a 12 mm balloon starting at the upper third of the main bile duct. Nothing was found. Cells for cytology were obtained by brushing in the middle third of the main bile duct. The bile duct was deeply cannulated. Contrast was injected. The middle third of the main bile duct contained a single mild stenosis 5 mm in length. This stenosis was just distal to the cystic appearing dilated upper bile duct. Procedure Code(s): --- Professional --- 21836, Endoscopic retrograde cholangiopancreatography (ERCP); with trans-endoscopic balloon dilation of biliary/pancreatic duct(s) or of ampulla (sphincteroplasty), including sphincterotomy, when performed, each duct Diagnosis Code(s): --- Professional --- K20.80, Other esophagitis without bleeding K83.1, Obstruction of bile duct R10.9, Unspecified abdominal pain K83.8, Other specified diseases of biliary tract R93.2, Abnormal findings on diagnostic imaging of liver and biliary tract CPT copyright 2020 [employer]. All rights reserved. The codes documented in this report are preliminary and upon property consultant review may be revised to meet current compliance requirements. Len Beverly MD 04/21/2025 3:42:30 PM This report has been signed electronically.Len Beverly MD Number of Addenda: 0 Note Initiated On: 04/21/2025 2:54 PM Scope In: Scope Out: Endoscopy Department at [facility] - [address] [place] [id number] Procedure Note Len Beverly MD - 04/21/2025 [facility] Patient Name: Grisel Lawrence Procedure Date: 04/21/2025 2:54 PM Date of : 1945 Age: 79 Room: ROOM 18 Gender: Female Note Status: Finalized Attending MD: Len Beverly MD, Procedure Date No Time: 04/21/2025 Procedure: ERCP Indications: Abdominal pain of suspected biliary origin, Biliary dilation on Computed Tomogram Scan, Abnormal MRCP Providers: Len Beverly MD Referring MD: Len Beverly MD Medicines: General Anesthesia Complications: No immediate complications. Estimated Blood Loss: Estimated blood loss: none. Procedure: Pre-Anesthesia Assessment: - ASA Grade Assessment: III - A patient with severe systemic disease. After obtaining informed consent, the scope waspassed under direct vision. Throughout the procedure, the patient's blood pressure, pulse, and oxygen saturations were monitored continuously. The Duodenoscope was introduced through the mouth, and advanced to the duodenum and used to injectcontrast into the bile duct. The ERCP was accomplishedwithout difficulty. The patient tolerated the procedurewell. Findings: The gang ripsaw operator film was normal. A standard esophagogastroduodenoscopy scope was used for the examination of the upper gastrointestinal tract.The scope was passed under direct vision through theupper GI tract. LA Grade D (one or more mucosal breaks involving at least 75% of esophageal circumference) esophagitis with no bleeding was found in themiddle third of the esophagus. The major papilla wasnormal. The bile duct was deeply cannulated with theJagtome sphincterotome. Contrast was injected. I personally interpreted the bile duct images. There was briskflow of contrast through the ducts. Image quality was excellent. Contrast extended to the bifurcation.The middle third of the main bile duct, upper third ofthe main bile duct and common hepatic duct wereseverely dilated and segmentally dilated, uncertain etiology (possibly a choledochocele). The largest diameterwas 17 mm. A 12 mm biliary sphincterotomy was made witha Jagtome sphincterotome. There was no post-sphincterotomy bleeding. Dilation of thecommon bile duct with a 10-11-12 mm balloon (to a maximum balloon size of 12 mm) dilator was successful. To discover objects, the biliary tree was swept with a12 mm balloon starting at the upper third of the main bile duct. Nothing was found. Cells for cytologywere obtained by brushing in the middle third of themain bile duct. The bile duct was deeply cannulated. Contrast was injected. The middle third of the main bile duct contained a single mild stenosis 5 mm in length. This stenosis was just distal to the cystic appearing dilated upper bile duct. Procedure Code(s): --- Professional --- 23888, Endoscopic retrogradecholangiopancreatography (ERCP); with trans-endoscopic balloon dilation of biliary/pancreatic duct(s) or of ampulla (sphincteroplasty), including sphincterotomy, when performed, each duct Diagnosis Code(s): --- Professional --- K20.80, Other esophagitis without bleeding K83.1, Obstruction of bile duct R10.9, Unspecified abdominal pain K83.8, Other specified diseases of biliary tract R93.2, Abnormal findings on diagnostic imaging of liver and biliary tract CPT copyright 2020 [employer]. All rights reserved. The codes documented in this report are preliminary and upon property consultant reviewmay be revised to meet current compliance requirements. Len Beverly MD 04/21/2025 3:42:30 PM This report has been signed electronically.Len Beverly MD Number of Addenda: 0 Note Initiated On: 04/21/2025 2:54 PM Scope In: Scope Out: Endoscopy Department at [facility] - [address] [place] [id number] IMPRESSION: - LA Grade D erosive esophagitis with no bleeding. - The major papilla appeared normal. - A single mild biliary stricture was found in the middle third of the main bile duct. The stricturewas indeterminate. - A biliary sphincterotomy was performed. - Common bile duct was successfully dilated. - The biliary tree was swept and nothing wasfound. - Cells for cytology obtained in the middle thirdof the main bile duct. Recommendation: - Use a proton pump inhibitor IV BID. - Await cytology results. us Len Beverly MD GI~PROCEDURE ORDERABLES Fin al Result * XR ERCP w Stone Removal (04/21/2025 3:34 PM EDT) Anatomical Region Laterality Modality Pancreatic duct and bile duct systems Radio Fluoroscopy 04/22/2025 7:40 AM EDT Narrative 04/22/2025 7:40 AM EDT Fluoroscopic spot radiographs obtained during ERCP are submitted. No radiologist consultation was requested or provided during this procedure and there is no radiologist professional charge. This report is generated for documentation purposes only. The dose-area product for this procedure was 506.57 uGy*m2. PQRI CPT II G9500 -------- FINAL REPORT -------- Dictated By: Casey Manley Dictated Date: 04/22/2025 07:40 ET Assigned Physician: Casey Manley Reviewed and Electronically Signed By: Casey Manley Signed Date: 04/22/2025 07:40 ET Workstation ID: [id number] Transcribed By: Self Edit Transcribed Date: 04/22/2025 07:40 ET Procedure Note Casey Manley MD - 04/22/2025 Fluoroscopic spot radiographs obtained during ERCP are submitted. Noradiologist consultation was requested or provided during this procedureand there is no radiologist professional charge. This report is generatedfor documentation purposes only. The dose-area product for this procedure was 506.57 uGy*m2. PQRI CPT II G9500 -------- FINAL REPORT -------- Dictated By: Casey Manley Dictated Date: 04/22/2025 07:40 ET Assigned Physician: Casey Manley Reviewed and Electronically Signed By: Casey Manley Signed Date: 04/22/2025 07:40 ET Workstation ID: [id number] Transcribed By: Self Edit Transcribed Date: 04/22/2025 07:40 ET us Len Beverly MD IMG FLUOROSCOPY PROCEDURES Final Result * Non-gynecologic cytology (04/21/2025 3:28 PM EDT) Final Diagnosis Common Bile Duct, brushing (ThinPrep, cell block): Negative for malignant cells. 04/25/2025 9:32 AM EDT [facility] Specimen A Adequacy Satisfactory for evaluation 04/25/2025 9:32 AM EDT [facility] Gross Description A. Common Bile Duct, CBD cytology brushing: Received in saline 30 ml of yellow fluid with brush; 1 ThinPrep, 1 Cell block Specimen was split into 1/2 cytolyt, 1/2 formalin. Cell block in formalin @ 08:30, total formalin fixation time 60.5 hours. 04/25/2025 9:32 AM EDT [facility] Disclaimer Unless otherwise specified, all tissue is 10% NB formalin fixed and paraffin embedded. Technical cytopathology services provided by [facility], at [address] [place] [id number] (CLIA # [id number]/Benjamin Yepez MD, [employer].) 04/25/2025 9:32 AM EDT [facility] Tissue Common bile duct structure / Unknown 04/21/2025 3:28 PM EDT 04/22/2025 8:31 AM EDT us Len Beverly MD LAB CYTOLOGY ORDERABLES Fin al Result [facility] [address] [place] [place] [id number], * TH AN ENDOTRACHEAL(NO CHARGE) (04/21/2025 3:11 PM EDT) Oj Juares CRNA - 04/21/2025 3:11 PM EDT Oj Redman CRNA 04/21/2025 3:12 PM General Information and Staff Patient location during procedure: OR Performed by: Oj Redman CRNA Authorized by: Tim Vazquez DO Intubation Airway not difficult Urgency: elective Final Airway Details Successful airway: ETT Cuffed: yes Successful intubation technique: direct laryngoscopy Endotracheal tube insertion site: oral Blade: Radhika Blade size: #3 ETT size (mm): 7.0 Cormack-Lehane Classification: grade IIa - partial view of glottis Placement verified by: chest auscultation, capnometry and palpation of cuff Cuff volume (mL): 7 Measured from: gums ETT to gums (cm): 21 Number of attempts at approach: 1Final airway type: endotracheal airway Indications and Patient Condition Indications for airway management: anesthesia and airway protection Spontaneous ventilation: present Sedation level: Yes Preoxygenated: yes Soft Tissue Damage: No Dentition Unchanged: Yes Patient position: neutral Mask difficulty assessment: 0 - not attempted us Tim Vazquez DO ANESTHESIA ORDERABLES Final Result * (ABNORMAL) TRANSTHORACIC ECHOCARDIOGRAM (TTE) COMPLETE (04/21/2025 12:18 PM EDT) Left Atrium Minor Norris 5.2 cm CV PACS Left Atrium Major Norris 5.3 cm CV PACS LA Area Sys (A2C) 16 cm2 CV PACS LA Area Sys (A4C) 18 cm2 CV PACS LA Volume (BP) 45 mL CV PACS RA Area 11.2 cm2 CV PACS RA 2D Volume 24 mL CV PACS Aortic Sinus Valsalva 2.6 cm CV PACS Ascending Aorta 2.4 cm CV PACS IVSD 1.2(A) 0.6 - 0.9 cm CV PACS LVIDD 4.1 3.8 - 5.2 cm CV PACS LVIDS 2.0(A) 2.2 - 3.5 cm CV PACS LVOT Diameter 1.8 cm CV PACS LVPWD 1.1(A) 0.6 - 0.9 cm CV PACS MV E' Tissue Velocity Lateral 6 cm/s CV PACS MV E' Tissue Velocity Septal 5 cm/s CV PACS LVOT Area 2.5 cm2 CV PACS E Wave Deceleration Time 277(A) 119 - 242 ms CV PACS MV Peak A Bahman 1.50 m/s CV PACS MV Peak E Bahman 1.20 m/s CV PACS RV S' 16 cm/s CV PACS TAPSE 19 mm CV PACS TR Peak Velocity 2.70 m/s CV PACS TR Peak Gradient 29 mmHg CV PACS E/E' Ratio Septal 24 CV PACS E/E' Ratio Averaged 22 CV PACS Relative Wall Thickness ratio 0.56(A) 0.22 - 0.42 CV PACS FS 51 % CV PACS LV Mass 2D 164(A) 66 - 150 g CV PACS Ascending Aorta Index 1.45 cm/m2 CV PACS RA 2D Volume Index 14 15 - 27 mL/m2 CV PACS LVIDD Index 2.47 cm/m2 CV PACS LVIDS Index 1.20 cm/m2 CV PACS E/A Ratio 0.8 0.8 - 2.0 CV PACS E/E' Ratio Lateral 20 CV PACS LA Volume Index (BP) 27 mL/m2 CV PACS LV Mass Index 2D 97(A) 44 - 88 g/m2 CV PACS BSA 1.66 m2 CV PACS Right Ventricular Peak Systolic Pressure 32 mmHg CV PACS Est. RA Pressure 3 mmHg CV PACS RV Free Wall Peak S' 16 cm/s CV PACS RA Major Norris 4.3 cm CV PACS RA Major Norris Index 2.6 2.2 - 2.8 cm/m2 CV PACS MV PHT 80 ms CV PACS MV Mean Gradient 3 mmHg CV PACS MV Peak Gradient 9 mmHg CV PACS MV VTI 39.6 cm CV PACS MV Area PHT 2.7 cm2 CV PACS LVOT Stroke Volume 82 mL CV PACS LVOT Stroke Index 0 mL/m2 CV PACS LVOT Peak Gradient 15 mmHg CV PACS LVOT Mean Grad 6 mmHg CV PACS MV Area Continuity Equation 2.1 cm2 CV PACS AV Velocity Ratio 0.85 CV PACS Ao VTI 44.1 cm CV PACS AV Mean Gradient 9 mmHg CV PACS AV Peak Gradient 21 mmHg CV PACS LVOT:AV VTI Index 0.74 CV PACS AV Area 2D 2.1 cm2 CV PACS GIOVANNY Index (2D) 1.27 cm2/m2 CV PACS AV Area Continuity Equation 1.9 cm2 CV PACS LVOT Peak Bahman 1.9 m/s CV PACS LV Ejection Time 0 ms CV PACS AV Area Index 1.3 CV PACS Anatomical Region Laterality Modality Ultrasound Narrative 04/21/2025 2:07 PM EDT Left ventricle cavity size is normal. There is mild, concentric left ventricular hypertrophy. There is normal left ventricular regional wall motion. Left ventricular systolic function is hyperdynamic with an ejection fraction over 70%. There is a mid cavitary gradient of 27 mmHg at rest. Provocation was not performed on the study. Right ventricle cavity is normal. Right ventricular systolic function is normal. There is no hemodynamically significant valve disease. Minor valvular abnormalities as below. There is normal pulmonary artery systolic pressure. Left Ventricle Left ventricle cavity size is normal. There is mild concentric hypertrophy. Systolic function is hyperdynamic with an ejection fraction over 70%. There is a mid cavitary gradient of 27 mmHg at rest. There are no regional LV wall motion abnormalities. Indeterminate diastolic function. Left atrial pressure is inconclusive. Right Ventricle Right ventricle cavity appears normal. Systolic function is normal. Left Atrium Left atrium cavity size is normal. Right Atrium Right atrium cavity is normal. IVC/SVC RA pressures is estimated to be 3 mmHg (IVC diameter <21 mm and decreases >50% during inspiration). Mitral Valve The leaflets are mildly thickened. There is no clear systolic anterior motion of the mitral valve leaflets however, there does appear to be septal contact of the papillary muscle in systole. There is severe annular calcification. There is trace regurgitation. There is no evidence of mitral valve stenosis. Tricuspid Valve The leaflets exhibit normal excursion. There is trace regurgitation. There is no evidence of tricuspid valve stenosis. The right ventricular systolic pressure is normal. The RVSP is estimated at 32 mmHg. Aortic Valve The aortic valve is trileaflet. There is no regurgitation or stenosis. Pulmonic Valve Visualized portions of the pulmonic valve appear normal. There is no regurgitation or stenosis. Ascending Aorta The aorta appears normal in size. Pericardium Pericardium appears normal. There is a trivial pericardial effusion. Study Details Overall the study quality was adequate. us Ronak Rutherford MD CV ECHO PROCEDURES Final Res ult * MR Abdomen wo Contrast MRCP (04/20/2025 4:01 PM EDT) Anatomical Region Laterality Modality Body Magnetic Resonan ce 04/20/2025 5:01 PM EDT Impressions 04/20/2025 5:04 PM EDT Cholelithiasis and choledocholithiasis with biliary duct dilatation. Hepatic steatosis. -------- FINAL REPORT -------- Dictated By: BORIS ARVIZU Dictated Date: 04/20/2025 17:01 ET Assigned Physician: BORIS ARVIZU Reviewed and Electronically Signed By: BORIS ARVIZU Signed Date: 04/20/2025 17:04 ET Workstation ID: [id number] Transcribed By: Self Edit Transcribed Date: 04/20/2025 17:01 ET Narrative 04/20/2025 5:04 PM EDT PROCEDURE: Abdominal MRI INDICATION: Cholelithiasis TECHNIQUE: Multiplanar, multisequence MRI of the abdomen Without contrast. COMPARISON: Ultrasound and CT 04/19/2025 FINDINGS: Hepatic steatosis. Scattered subcentimeter T2 hyperintense foci throughout the liver, likely cysts or hemangiomas. Cholelithiasis. Choledocholithiasis with multiple filling defects in the common bile duct. Biliary duct dilatation with common bile duct measuring up to 15 mm. No pancreatic mass or ductal dilatation. Spleen and adrenal glands are normal. Bilateral renal cysts including left peripelvic cysts. No hydronephrosis or solid renal mass. Abdominal aorta flow void is normal. No retroperitoneal or mesenteric lymphadenopathy. Colonic diverticulosis. No ascites or fluid collection. No bowel obstruction. Diffuse anasarca. No suspicious marrow replacing lesions throughout the bones. Bilateral pleural effusions are partially imaged. Small hiatal hernia.. Procedure Note Boris Arvizu MD - 04/20/2025 PROCEDURE: Abdominal MRI INDICATION: Cholelithiasis TECHNIQUE: Multiplanar, multisequence MRI of the abdomen Withoutcontrast. COMPARISON: Ultrasound and CT 04/19/2025 FINDINGS: Hepatic steatosis. Scattered subcentimeter T2 hyperintense focithroughout the liver, likely cysts or hemangiomas. Cholelithiasis. Choledocholithiasis with multiple filling defects in thecommon bile duct. Biliary duct dilatation with common bile duct measuringup to 15 mm. No pancreatic mass or ductal dilatation. Spleen and adrenal glands are normal. Bilateral renal cysts including left peripelvic cysts. No hydronephrosisor solid renal mass. Abdominal aorta flow void is normal. No retroperitoneal or mesentericlymphadenopathy. Colonic diverticulosis. No ascites or fluid collection. No bowelobstruction. Diffuse anasarca. No suspicious marrow replacing lesions throughout thebones. Bilateral pleural effusions are partially imaged. Small hiatalhernia.. IMPRESSION: Cholelithiasis and choledocholithiasis with biliary duct dilatation. Hepatic steatosis. -------- FINAL REPORT -------- Dictated By: BORIS ARVIZU Dictated Date: 04/20/2025 17:01 ET Assigned Physician: BORIS ARVIZU Reviewed and Electronically Signed By: BORIS ARVIZU Signed Date: 04/20/2025 17:04 ET Workstation ID: [id number] Transcribed By: Self Edit Transcribed Date: 04/20/2025 17:01 ET Jonn Lawrence MD IMG MRI PROCEDURES Final Re sult * SST tube (04/20/2025 6:49 AM EDT) Extra Tube Hold for add-ons. 04/20/2025 10:01 AM EDT [facility] Comment:Auto resulted. Blood Venous blood specimen / Unknown 04/20/2025 6:49 AM EDT 04/20/2025 8:14 AM EDT us Ronak Rutherford MD LAB BLOOD ORDERABLES Final R esult [facility] [address] [place] [address], [place] [phone] * (ABNORMAL) Hemoglobin and hematocrit (04/20/2025 2:19 AM EDT) Only the most recent of2 resultswithin the time period is included. Hemoglobin 8.2(L) 11.5 - 16.0 g/dL LAB HEMETOLOGY METHOD 04/20/2025 2:30 AM EDT [facility] Hematocrit 25.7(L) 35.0 - 47.0 % LAB HEMETOLOGY METHOD 04/20/2025 2:30 AM EDT [facility] Blood Venous blood specimen / Unknown Venipuncture / Unknown 04/20/2025 2:19 AM EDT 04/20/2025 2:27 AM EDT us Petty TURNER LAB BLOOD ORDERABLES Final R esult Performing Organization Address City/[facility]/ZIP Co de Phone Number [facility] [address] [place] [address], [place] [phone] * Type and screen (04/20/2025 2:19 AM EDT) Pathologist [facility] O 04/20/2025 3:42 AM EDT [facility] Rh Type Positive 04/20/2025 3:42 AM EDT [facility] Antibody Screen Negative 04/20/2025 3:42 AM EDT [facility] Blood Venous blood specimen / Unknown Venipuncture / Unknown 04/20/2025 2:19 AM EDT 04/20/2025 2:27 AM EDT us Petty TURNER LAB BLOOD BANK TEST ORDERABL ES Final Result [facility] [address] [place] [address], [place] [phone] * US Abdomen Limited (04/19/2025 7:52 PM EDT) Anatomical Region Laterality Modality Body Ultrasound 04/19/2025 8:34 PM EDT Impressions 04/19/2025 8:34 PM EDT 1. Cholelithiasis. Gallbladder wall not well visualized. Large nonmobile stone within the gallbladder measuring 2.5 cm. Negative sonographic Barahona's sign. 2. Dilated common bile duct measuring up to 16 mm in diameter, corresponding to findings on CT. This document has been electronically signed by: Jitendra Burks MD on 04/19/2025 20:34:37 Narrative 04/19/2025 8:34 PM EDT INDICATION: RUQ abdominal pain, no prior imaging US abdomen limited Comparison: None provided Findings: Exam visualization is limited. The pancreas is partially obscured. The inferior vena cava are normal caliber. The liver is normal in size and not well visualized. There is no intrahepatic bile duct dilatation. The common duct is 16 mm in diameter. The gallbladder contains a large nonmobile stone measuring 2.5 cm in diameter. Gallbladder wall is difficult to visualized. No wall hyperemia seen. No pericholecystic fluid identified. There is no sonographic Barahona sign. The main portal vein is antegrade. The right kidney is 9.6 cm in length. No hydronephrosis. No ascites. Procedure Note Jitendra Burks MD - 04/19/2025 INDICATION: RUQ abdominal pain, no prior imaging US abdomen limited Comparison: None provided Findings: Exam visualization is limited. The pancreas is partially obscured. The inferior vena cava are normal caliber. The liver is normal in size and not well visualized. There is no intrahepatic bile duct dilatation. The common duct is 16 mm in diameter. The gallbladder contains a large nonmobile stone measuring 2.5 cm in diameter. Gallbladder wall is difficult to visualized. No wall hyperemia seen. No pericholecystic fluid identified. There is no sonographicMurphy sign. The main portal vein is antegrade. The right kidney is 9.6 cm in length. No hydronephrosis. No ascites. IMPRESSION: 1. Cholelithiasis. Gallbladder wall not well visualized. Large nonmobile stone within the gallbladder measuring 2.5 cm. Negative sonographic Barahona's sign. 2. Dilated common bile duct measuring up to 16 mm in diameter, corresponding to findings on CT. This document has been electronically signed by: Jitendra Burks MD on 04/19/2025 20:34:37 Dora Fuentes MD IM US PROCEDURES Final Result * (ABNORMAL) Urinalysis with reflex microscopic and culture (04/19/2025 7:17 PM EDT) Specific [place] Urine >1.045(H) 1.003 - 1.030 LAB URINALYSIS - AUTOMATED METHOD 04/19/2025 8:05 PM [facility] pH, Urine 6.5 5.0 - 8.0 pH LAB URINALYSIS - AUTOMATED METHOD 04/19/2025 8:05 PM [facility] Leukocytes, Urine Negative Negative LAB URINALYSIS - AUTOMATED METHOD 04/19/2025 8:05 PM [facility] Nitrite, Urine Negative Negative LAB URINALYSIS - AUTOMATED METHOD 04/19/2025 8:05 PM [facility] Protein, Urine Trace <=Trace mg/dL LAB URINALYSIS - AUTOMATED METHOD 04/19/2025 8:05 PM [facility] Glucose, Urine Negative Negative mg/dL LAB URINALYSIS - AUTOMATED METHOD 04/19/2025 8:05 PM [facility] Ketones, Urine Negative Negative mg/dL LAB URINALYSIS - AUTOMATED METHOD 04/19/2025 8:05 PM [facility] Urobilinogen , Urine 1.0 0.2 - 1.0 mg/dL LAB URINALYSIS - AUTOMATED METHOD 04/19/2025 8:05 PM [facility] Bilirubin, Urine Negative Negative LAB URINALYSIS - AUTOMATED METHOD 04/19/2025 8:05 PM [facility] Blood, Urine Negative Negative LAB URINALYSIS - AUTOMATED METHOD 04/19/2025 8:05 PM [facility] Urine Urine specimen obtained by clean catch procedure / Unknown Non-blood Collection / Unknown 04/19/2025 7:17 PM EDT 04/19/2025 7:55 PM EDT us Dora Fuentes MD LAB URINE ORDERABLES Final Resul t Performing Organization Address [facility]/ZIP Co de Phone Number [facility] [address] [place] [address], [place] [phone] * Ken urine culture tube (04/19/2025 7:17 PM EDT) Extra Tube Hold for add-ons. 04/19/2025 9:01 PM EDT [facility] Comment:Auto resulted. Urine Urine specimen obtained by clean catch procedure / Unknown Non-blood Collection / Unknown 04/19/2025 7:17 PM EDT 04/19/2025 7:55 PM EDT us Dora Fuentes MD LAB URINE ORDERABLES Final Resul t Performing Organization Address [facility] Co de Phone Number [facility] [address] [place] [address], [place] [phone] * CT Chest/Abdomen/Pelvis w Contrast (04/19/2025 5:48 PM EDT) Anatomical Region Laterality Modality Body Computed Tomogra phy 04/19/2025 6:21 PM EDT Impressions 04/19/2025 6:21 PM EDT 1. Abnormal thickening of the wall of the esophagus may be secondary to severe esophagitis. Neoplasm is also in the differential. 2. Moderate left pleural effusion. Small right pleural effusion. 3. There are 2 left upper lobe nodules measuring 2 cm and 12 mm in size respectively. Recommend further evaluation with PET CT. 4. There is consolidation and volume loss involving a portion of the right upper lobe associated with opacification of bronchial segments which could be related to retained secretions or aspiration. 5. Moderate dilatation of the common bile duct and [id number] dilatation of the intrahepatic biliary tree. The appearance of the common bile duct raises the possibility of a choledochocele at the level of the ampulla. Correlate with laboratory data. Recommend further evaluation with MRCP or ERCP. 6. There is a large gallstone. Consider further evaluation with ultrasound if indicated. 7. Colonic diverticulosis without diverticulitis. This document has been electronically signed by: Erica Oviedo MD on 04/19/2025 18:21:23 Narrative 04/19/2025 6:21 PM EDT INDICATION: Persistent vomiting. Left lower quadrant tenderness to palpation, concern for possible aspiration. CT chest, abdomen and pelvis with contrast Comparison: None provided Findings: Normal heart size. Trace pericardial fluid. Mild coronary artery calcification. Dense mitral annular calcification. 2.5 cm exophytic nodule extending inferior to the esophagus. Trace fluid within the posterior mediastinum. Borderline size lymph node within the subcarina. Moderate left pleural effusion. Small right pleural effusion. 12 mm left upper lobe nodule on image 73. 2 cm left upper lobe nodule on image 85. Consolidation and volume loss within the medial aspect of the right upper lobe associated with opacification of associated bronchial segments. There is moderate dilatation of the common bile duct including cystic dilatation of the common bile duct at the level of the ampulla of Vater. There is [id number] dilatation of the intrahepatic biliary tree. There is a large gallstone within the gallbladder. The pancreatic duct is not dilated. There is no evidence of pancreatic mass. The spleen and adrenal glands are unremarkable. There are multiple kidney cysts. There is colonic diverticulosis without diverticulitis. There is no bowel edema or dilatation. There is a 2.3 cm exophytic fibroid arising from the left lateral body of the uterus. Pelvic contents are otherwise unremarkable. The appendix is normal. The bones are intact. Procedure Note Raphaelt-Erica Oviedo MD - 04/19/2025 INDICATION: Persistent vomiting. Left lower quadrant tenderness to palpation, concern for possible aspiration. CT chest, abdomen and pelvis with contrast Comparison: None provided Findings: Normal heart size. Trace pericardial fluid. Mild coronary artery calcification. Dense mitral annular calcification. 2.5 cm exophytic nodule extending inferior to the esophagus. Trace fluid within the posterior mediastinum. Borderline size lymph node within the subcarina. Moderate left pleural effusion. Small right pleural effusion. 12 mm left upper lobe nodule on image 73. 2 cm left upper lobe nodule on image 85. Consolidation and volume loss within the medial aspect of the rightupper lobe associated with opacification of associated bronchial segments. There is moderate dilatation of the common bile duct including cystic dilatation of the common bile duct at the level of the ampulla of Vater. There is [id number] dilatation of the intrahepatic biliary tree. There is a large gallstone within the gallbladder. The pancreatic ductis not dilated. There is no evidence of pancreatic mass. The spleen and adrenal glands are unremarkable. There are multiple kidney cysts. There is colonic diverticulosis without diverticulitis. There is nobowel edema or dilatation. There is a 2.3 cm exophytic fibroid arising from the left lateral bodyof the uterus. Pelvic contents are otherwise unremarkable. The appendix is normal. The bones are intact. IMPRESSION: 1. Abnormal thickening of the wall of the esophagus may be secondary to severe esophagitis. Neoplasm is also in the differential. 2. Moderate left pleural effusion. Small right pleural effusion. 3. There are 2 left upper lobe nodules measuring 2 cm and 12 mm in size respectively. Recommend further evaluation with PET CT. 4. There is consolidation and volume loss involving a portion of theright upper lobe associated with opacification of bronchial segments whichcould be related to retained secretions or aspiration. 5. Moderate dilatation of the common bile duct and [id number]-it-[id number] dilatation of the intrahepatic biliary tree. The appearance of thecommon bile duct raises the possibility of a choledochocele at the level of the ampulla. Correlate with laboratory data. Recommend further evaluationwith MRCP or ERCP. 6. There is a large gallstone. Consider further evaluation withultrasound if indicated. 7. Colonic diverticulosis without diverticulitis. This document has been electronically signed by: Erica Oviedo MD on 04/19/2025 18:21:23 Dora Fuentes MD IMG CT PROCEDURES Final Result * Prolactin (04/19/2025 4:16 PM EDT) Prolactin 5.10 See Comment ng/mL LAB CHEMISTRY METHOD 04/19/2025 9:07 PM EDT [facility] Comment: Prolactin Reference Ranges (ng/mL) Non 2.2 - 30.3 8.1 - 347.6 Postmenopausal 0.7 - 31.5 Blood Venous blood specimen / Unknown Venipuncture / Unknown 04/19/2025 4:16 PM EDT 04/19/2025 4:22 PM EDT us Petty TURNER LAB BLOOD ORDERABLES Final R esult Performing Organization Address [facility]/ZIP Co de Phone Number [facility] [address] [place] [address], [place] [phone] * Lipase (04/19/2025 4:16 PM EDT) Lipase 59 13 - 75 unit/L LAB CHEMISTRY METHOD 04/19/2025 5:05 PM EDT [facility] Blood Venous blood specimen / Unknown Venipuncture / Unknown 04/19/2025 4:16 PM EDT 04/19/2025 4:22 PM EDT Dora Fuentes MD LAB BLOOD ORDERABLES Final Resul t Performing Organization Address [facility] [facility] Co de Phone Number [facility] [address] [place] [address], [place] [phone] from Last 3 Months Insurance [employer] Member Subscriber Plan / Payer (Ef fective 2012-Present) Name:Grisel Lawrence Relation to Subscriber:Self Name:Grisel Lawrence Payer ID:[id number] Group ID:[id number] Type:Not on file Address: [place] [address] [place] [phone] Advance Directives * Full Code - Default (Latest Code Status on File) Date Activated Date Inactivated Comments 04/19/2025 7:20 PM 04/22/2025 5:24 PM This is orde r is used when code status has not been discussed with the patient, or code status is otherwise unknown/unconfirmed To update the patient's code status, place a code status order. Do not modify or discontinue any currently active code status orders. Care Teams Wedding Designer Relationship Specialty Start Date End Date Manan Wood MD [address] [place] [id number] PCP - General Internal Medicine 04/19/25
--- NOTE | 2025-04-28 16:36 | PC.NURSE ---
Identity confirmed. Grisel Vines Howard, : 1945. Patient lives in [place], [place] from [facility] ([facility]). Izabel Lester (Niece/Legal Guardian) to come to bedside. . Allergy to morphine.
[2025-04-28 18:00] VITALS: BP 126/60; PULSE 78; RESP 18; O2SAT 100
[2025-04-28 18:20] VITALS: BP 126/60; PULSE 78; RESP 18; TEMP 36.5; O2SAT 100
== END 2025-04-28 18:20 | disposition home or self-care (01) ==
PROVIDERS: Emergency Provider Emergency Medicine
DX: R41.0 Disorientation, unspecified (principal); F03.90 Unspecified dementia, unspecified severity, without behavioral disturbance, psychotic disturbance, mood disturbance, and anxiety; J90 Pleural effusion, not elsewhere classified; D64.9 Anemia, unspecified; J81.1 Chronic pulmonary edema; Z79.899 Other long term (current) drug therapy; Z87.01 Personal history of pneumonia (recurrent)
CPT/HCPCS: 71046; 80048; 85025; 87635; 93005; 99283; 99284

== ENCOUNTER → 2025-04-28 13:43 | Outpatient (BNV) | payer OTHER, SELFPAY | PROVIDERS: Emergency Provider Emergency Medicine; Visit Provider Internal Medicine | DX: Z13.6 Encounter for screening for cardiovascular disorders (principal) | CPT/HCPCS: 93010 ==

== ENCOUNTER → 2025-04-28 13:43 | Outpatient (BNV) | payer OTHER, SELFPAY | PROVIDERS: Emergency Provider Emergency Medicine; Visit Provider Radiology Diagnostic Radiology | DX: J90 Pleural effusion, not elsewhere classified (principal); J81.1 Chronic pulmonary edema; R91.8 Other nonspecific abnormal finding of lung field | CPT/HCPCS: 71046 ==